=== PATIENT | female | born 1950 | race Caucasian/White ===

== ENCOUNTER 2018-09-06 00:31 | Outpatient (CLI) | payer MEDICARE, OTHER, SELFPAY ==
--- NOTE | 2018-09-06 11:51 | DI.MAMMO_ITS ---
SYMPTOMS/DIAGNOSIS: SCREENING, Z12.31 MAMMOGRAM: Mammograms were interpreted according to the usual protocol including computer analysis with CAD system, tomosynthesis and C view imaging. Comparison with prior examinations. Breast density B. No suspicious masses or microcalcifications are seen. The asymmetric breast tissue in the upper central left breast appears stable. The skin and axilla are unremarkable. IMPRESSION: No evidence for malignancy. Yearly mammography is recommended. Category 2. MQSA ASSESSMENT OF FINDINGS: Negative with benign findings. Category 2. Patient will receive a letter notifying them of these results. BI-RADS category B. There are scattered areas of fibroglandular density.
== END 2018-09-06 00:51 ==
PROVIDERS: PCP Family Medicine; Visit Provider Internal Medicine
DX: Z12.31 Encounter for screening mammogram for malignant neoplasm of breast (principal)
CPT/HCPCS: 77063; 77067